=== PATIENT | female | born 1935 | race African-American/Black ===

== ENCOUNTER 2019-07-26 04:44 | Inpatient (IN) | payer MEDICARE, MEDICAID ==
[~2019-07-26] VITALS: Ht 172.7 cm; Wt 86.9 kg
--- NOTE | 2019-07-26 04:49 | NUR ---
PT BIBRA C/O MIDSTERNAL CHEST PRESSURE X30 MIN. -SOB. O2 SAT 98%. NAD NOTED. RESP EVEN AND UNLABORED. PT ON MONITOR IN BED 4. WILL CONTINUE TO MONITOR.
--- NOTE | 2019-07-26 04:51 | NUR ---
TECH AT BEDSIDE FOR EKG
--- NOTE | 2019-07-26 04:57 | NUR ---
BLOOD DRAWN AND GIVEN TO LAB
[2019-07-26 05:01] LABS: BASOPHILS % (AUTO) 0.4 % (0.0-2.0); EOSINOPHILS % (AUTO) 0.2 % (0.0-6.0); HEMATOCRIT 38 % (33-45); HEMOGLOBIN 12.8 g/dL (11.5-14.8); LYMPHOCYTES # (AUTO) 1.6 /CMM (0.8-4.8); LYMPHOCYTES % (AUTO) 22.3 % (20.0-44.0); MEAN CORPUSCULAR HGB CONC 34 g/dl (31.0-36.0); MEAN CORPUSCULAR VOLUME 93 fL (82-100); MONOCYTES # (AUTO) 0.7 /CMM (0.1-1.30); MONOCYTES % (AUTO) 9.1 % (2.0-12.0); NEUTROPHILS # (AUTO) 4.9 /CMM (1.8-8.9); PLATELET COUNT (AUTO) 216 /CMM (150-450); RED BLOOD CELL COUNT(AUTO) 4.04 MIL/uL (4.0-5.2); WHITE BLOOD COUNT (AUTO) 7.2 K/uL (4.3-11.0)
--- NOTE | 2019-07-26 05:07 | NUR ---
RADIOLOGY AT BEDSIDE FOR XRAY
[2019-07-26 05:09] LABS: CALCIUM, SERUM 9.4 mg/dL (8.5-10.1); CARBON DIOXIDE 27 mmol/L (21-32); CHLORIDE 101 mmol/L (98-107); CREATININE 1.7 mg/dL (0.6-1.3); GLUCOSE 110 mg/dL (74-106); POTASSIUM 3.7 mmol/L (3.5-5.1); SODIUM SERUM 137 mmol/L (136-145); UREA NITROGEN, BLOOD 38 mg/dL (7-18)
--- NOTE | 2019-07-26 06:11 | NUR ---
REPORT GIVEN TO JERRY MARK FOR AIDEN
[2019-07-26] MEDS ORDERED: ONDANSETRON HCL/PF 4 MG/2 ML VIAL IVP PRN (06:30)
[2019-07-26] MEDS ORDERED: Z GUARD REMEDY 2 OZ OINT TP PRN (06:30)
[2019-07-26] MEDS ORDERED: MAG HYDROX/AL HYDROX/SIMETH 30 ML UDC PO PRN (06:30)
[2019-07-26] MEDS ORDERED: MAGNESIUM HYDROXIDE 30 ML UDC PO PRN (06:30)
[2019-07-26] MEDS ORDERED: HYDROCODONE/APAP 5/325MG 1 EACH TABLET PO PRN (06:30)
[2019-07-26 06:35] VITALS: BP 136/72
--- NOTE | 2019-07-26 06:35 | NUR ---
TELE/RN NOTES RECEIVED PT. FROM ER VIA MARK. PT. IS AWAKE, ALERT AND ORIENTED X2. BREATHING EVEN AND UNLABORED ON ROOM AIR. NO SOB, RESPIRATORY DISTRESS OR COMPLAINTS OF PAIN NOTED AT THIS TIME. ORIENTED PT. TO ROOM. PLACED EXTERNAL FINANCIAL SERVICES COUNSELOR ON PT. BED LOCKED AND IN LOWEST POSITION, SIDE RAILS UP X3, BED ALARM ON, CALL LIGHT WITHIN REACH. WILL ENDORSE TO DAYSHIFT NURSE FOR ADMISSION.
--- NOTE | 2019-07-26 07:00 | NUR ---
GOLF BALL WINDER OPENING NOTES RECEIVED PT FROM MACHINE WOOD SANDER AN ADMISSION.PT IS ALERT/ORIENTED X2 WITH DEMENTIA.ON TELE HR IS 70 WITH NSR.ON ROOM AIR,SATURATING WELL.NO SOB AND ACUTE DISTRESS NOTED.IV LINE IS ON LEFT HAND G20,SL.SITE IS CLEAN,DRY AND INTACT.NO INFILTRATION NOTED.SAFETY IS MAINTAINED AT ALL TIMES.BED IS IN LOW POSITION AND LOCKED.CALL LIGHT IS WITHIN REACH.WILL CONTINUE TO MONITOR THE PT CLOSELY.
[2019-07-26 08:00] VITALS: BP 132/70
[2019-07-26] MEDS: IV NS 0.9% 1,000 ML IV PRN (08:06)
--- NOTE | 2019-07-26 08:10 | NUR ---
JOVAN received a call from Ez at [facility] informing JOVAN that pt. was sent to [facility] from [facility] and pt. will be coming back to [facility] once medically cleared. JOVAN called [facility] [address] [place] and updated her with aforementioned information.
[2019-07-26 08:31] VITALS: BP 132/70
[2019-07-26] MEDS ORDERED: ASPIRIN 81 MG TAB.CHEW PO SCH (09:00)
[2019-07-26 09:26] LABS: THYROID STIMULATING HORMONE 7.054 uIU/mL (0.358-3.74)
[2019-07-26] MEDS: ATORVASTATIN 10 MG TABLET PO SCH (09:45)
[2019-07-26] MEDS: PANTOPRAZOLE 40 MG TABLET.DR PO SCH (09:45)
[2019-07-26] MEDS: ENOXAPARIN SODIUM 30 MG/0.3 ML DISP.SYRIN SQ SCH (09:52)
[2019-07-26] MEDS ORDERED: IPRA4AER IH (10:41)
[2019-07-26] MEDS ORDERED: FURO-145 PO (10:41)
[2019-07-26] MEDS ORDERED: ISOS30TA6 PO (10:41)
[2019-07-26] MEDS ORDERED: OLAN5TAB3 PO (10:41)
[2019-07-26] MEDS ORDERED: SPIR25TA6 PO (10:41)
[2019-07-26] MEDS ORDERED: LOSA1TAB39 PO (10:41)
[2019-07-26] MEDS ORDERED: AMLO10TA4 PO (10:41)
[2019-07-26] MEDS ORDERED: CLOP75TA15 PO (10:41)
[2019-07-26] MEDS ORDERED: ATOR10TA PO (10:41)
[2019-07-26] MEDS ORDERED: VENL75TA4 PO (10:41)
[2019-07-26] MEDS ORDERED: DONE10TA44 PO (10:41)
[2019-07-26] MEDS ORDERED: ESOM20CA PO (10:41)
[2019-07-26] MEDS ORDERED: LEVO25TA7 PO (10:41)
[2019-07-26] MEDS ORDERED: EZET10TA16 PO (10:41)
[2019-07-26] MEDS ORDERED: LORA1TAB PO (10:41)
[2019-07-26] MEDS ORDERED: MEMA14CA PO (10:41)
[2019-07-26] MEDS: ACETAMINOPHEN 325 MG TABLET PO PRN (11:33)
--- NOTE | 2019-07-26 14:53 | NUR ---
JOVAN was informed by human services case manager Mary that pt's public guardian Ron Scott would like for the pt. to go back to her [facility]. JOVAN contacted Ez at [facility] and updated him the aforementioned information.
[2019-07-26 16:00] VITALS: BP 131/65
[2019-07-26 16:06] LABS: MAGNESIUM 1.9 mg/dL (1.8-2.4); PHOSPHORUS 3.7 mg/dL (2.5-4.9)
--- NOTE | 2019-07-26 18:34 | NUR ---
MS RN CLOSING NOTES PT IS LYING ON BED.ALERT/ORIENTED X3.IV FLUID IS RUNNING .9%NS @75CC/HR.IV LINE IS IN PLACE.NO SIGNIFICANT CHANGES NOTED IN THE SHIFT.VITAL SIGNS ARE STABLE.WILL ENDORSE TO ALLIGATOR HUNTER RN FOR AIDEN.
[2019-07-26 19:54] VITALS: BP 134/76
--- NOTE | 2019-07-26 20:30 | NUR ---
RN MS OPENING NOTES RECEIVED PATIENT IN BED AWAKE, ALERT AND ORIENTED X2, VERBALLY RESPONSIVE, ABLE TO MAKE NEEDS KNOWN. BREATHING EVEN AND UNLABORED. NO SOB NOTED. ON ROOM AIR. DENIES PAIN OR DISCOMFORT. IV INTACT AND PATENT WITH IVF INFUSING. AFEBRILE. ALL OTHER NEEDS ATTENDED TO. SAFETY MEASURES IN PLACE. CALL LIGHT WITHIN REACH. WILL CONTINUE TO MONITOR.
[2019-07-27 06:21] LABS: BASOPHILS % (AUTO) 0.2 % (0.0-2.0); EOSINOPHILS % (AUTO) 0.1 % (0.0-6.0); HEMATOCRIT 39 % (33-45); HEMOGLOBIN 12.9 g/dL (11.5-14.8); LYMPHOCYTES # (AUTO) 1.3 /CMM (0.8-4.8); MEAN CORPUSCULAR HGB CONC 34 g/dl (31.0-36.0); MEAN CORPUSCULAR VOLUME 93 fL (82-100); MONOCYTES # (AUTO) 0.5 /CMM (0.1-1.30); MONOCYTES % (AUTO) 8.7 % (2.0-12.0); NEUTROPHILS # (AUTO) 4.2 /CMM (1.8-8.9); PLATELET COUNT (AUTO) 199 /CMM (150-450); RED BLOOD CELL COUNT(AUTO) 4.16 MIL/uL (4.0-5.2)
[2019-07-27 06:38] LABS: CHOLESTEROL 140 mg/dL (<200); HDL CHOLESTEROL 50 mg/dL (40-60); LDL 75 mg/dL (0-99); THYROID STIMULATING HORMONE 2.625 uIU/mL (0.358-3.74); TRIGLYCERIDES 90 mg/dL (30-150)
[2019-07-27] MEDS: IV NS 0.9% 1,000 ML IV PRN (06:39)
--- NOTE | 2019-07-27 06:55 | NUR ---
RN MS CLOSING NOTES PATIENT RESTING IN BED. NO ACUTE CHANGES THROUGHOUT SHIFT. BREATHING EVEN AND UNLABORED. NO SOB NOTED. ON ROOM AIR. DENIES PAIN OR DISCOMFORT. IV INTACT AND PATENT WITH IVF INFUSING. KEPT CLEAN DRY AND COMFORTABLE. ALL NEEDS ATTENDED TO. SAFETY MEASURES IN PLACE. CALL LIGHT WITHIN REACH. WILL ENDORSE TO ONCOMING NURSE FOR AIDEN.
[2019-07-27 06:57] LABS: ALANINE AMINOTRANSFERASE 17 U/L (12-78); ALBUMIN 3.5 g/dL (3.4-5.0); ALKALINE PHOSPHATASE 123 U/L (46-116); ASPARTATE AMINOTRANSFERASE 13 U/L (15-37); BILIRUBIN,TOTAL 0.3 mg/dL (0.2-1.0); CALCIUM, SERUM 9.4 mg/dL (8.5-10.1); CARBON DIOXIDE 26 mmol/L (21-32); CHLORIDE 106 mmol/L (98-107); CREATININE 1.3 mg/dL (0.6-1.3); GLUCOSE 92 mg/dL (74-106); MAGNESIUM 1.7 mg/dL (1.8-2.4); PHOSPHORUS 3.3 mg/dL (2.5-4.9); POTASSIUM 4.2 mmol/L (3.5-5.1); SODIUM SERUM 141 mmol/L (136-145); TOTAL PROTEIN, SERUM 7.6 g/dL (6.4-8.2); UREA NITROGEN, BLOOD 27 mg/dL (7-18)
--- NOTE | 2019-07-27 07:45 | NUR ---
MS/RN - Assessment Patient awake, A/O x 2, no complaints overnight, denies chest pain, afebrile, stable on room air. IVF NS at 75 ml/hr infusing well on the left hand with no signs of infiltration. Morning labs reviewed, noted with low magnesium level 1.7, will relay to Dr. Butt. Patient educated on plan of care. Fall and aspiration precautions maintained. Will continue with current medical management.
[2019-07-27 08:00] VITALS: BP 100/76
[2019-07-27] MEDS: ATORVASTATIN 10 MG TABLET PO SCH (08:07)
[2019-07-27] MEDS: PANTOPRAZOLE 40 MG TABLET.DR PO SCH (08:07)
[2019-07-27] MEDS: ENOXAPARIN SODIUM 30 MG/0.3 ML DISP.SYRIN SQ SCH (08:08)
[2019-07-27] MEDS ORDERED: ASPIRIN 81 MG TAB.CHEW PO SCH (09:00)
--- NOTE | 2019-07-27 10:00 | NUR ---
MS/RN - S/b Dr. Butt Seen and examined by Dr. Butt with orders.
[2019-07-27] MEDS: Magnesium 1GM/D5W 100ML PREMIX 100 ML IV SCH ×2 (11:15→12:22)
[2019-07-27 16:00] VITALS: BP 166/105
--- NOTE | 2019-07-27 17:55 | NUR ---
MS/RN - End of shift summary Patient is A/O x 1-2, confused at times, reality orientation provided, denies pain, stable on room air. Magnesium replacement given, continue IVF to maintain hydration. All needs attended. Fall and aspiration precautions maintained. Will continue with current medical management.
--- NOTE | 2019-07-27 19:27 | NUR ---
RECEIVED AWAKE AND ALERT WAVING "HI" AND SMILING BED ALARM ON IV SITE W/O REDNESS OR EDEMA WRAPPED WITH GAUZE AT THE SITE D/T HER REMOVING IV MULTIPLE TIMES DURING THE DAY SHIFT BED ALARM ON ROOM NEAR NURSING STATION RESP EVEN AND UNLABORED
[2019-07-27 19:44] VITALS: BP 143/80
[2019-07-27 20:16] VITALS: BP 143/80
[2019-07-27] MEDS: ACETAMINOPHEN 325 MG TABLET PO PRN (20:58)
--- NOTE | 2019-07-28 05:15 | NUR ---
ENDING NOTES: ALERT ORIENTATED X1. AT THE BEGINNING OF THIS 12 HOURS SHE REMOVED HER IV AND STATED SHE WANTED TO GO HOME. SPOKE TO HER IN A SOFT CALM MATTER AND CONVINCED HER TO STAY. IV RESTARTED AND SNACK GIVEN AND CONSUMED 100%. PT CHECKED ON FREQUENTLY TO HELP LESSEN HER ANXIETY OF BEING ALONE, THIS WAS EFFECTIVE, NO C/O CHESTPAIN THIS 12 HOURS
[2019-07-28] MEDS: IV NS 0.9% 1,000 ML IV PRN (05:45)
[2019-07-28 06:25] LABS: BASOPHILS % (AUTO) 0.3 % (0.0-2.0); HEMATOCRIT 40 % (33-45); HEMOGLOBIN 13.2 g/dL (11.5-14.8); LYMPHOCYTES # (AUTO) 1.2 /CMM (0.8-4.8); LYMPHOCYTES % (AUTO) 19.8 % (20.0-44.0); MEAN CORPUSCULAR HGB CONC 33 g/dl (31.0-36.0); MEAN CORPUSCULAR VOLUME 93 fL (82-100); MONOCYTES # (AUTO) 0.6 /CMM (0.1-1.30); NEUTROPHILS # (AUTO) 4.1 /CMM (1.8-8.9); NEUTROPHILS % (AUTO) 69.9 % (43.0-81.0); PLATELET COUNT (AUTO) 192 /CMM (150-450); RED BLOOD CELL COUNT(AUTO) 4.25 MIL/uL (4.0-5.2); WHITE BLOOD COUNT (AUTO) 5.9 K/uL (4.3-11.0)
[2019-07-28 06:29] LABS: CALCIUM, SERUM 9.5 mg/dL (8.5-10.1); CREATININE 1.1 mg/dL (0.6-1.3); POTASSIUM 4.1 mmol/L (3.5-5.1)
--- NOTE | 2019-07-28 07:10 | NUR ---
MS RN NOTES PATIENT IN BED EYES CLOSED, EASY TO AROUSE, RESPOND TO VERBAL AND TACTILE STIMULI. NO ACUTE DISTRESS NOTED. BREATHING UNLABORED. NO SOB NOTED. IV ACCESS PATENT AND INTACT, NO REDNESS OR SWELLING NOTED. SAFETY MEASURES IN PLACE. CALL LIGHT WITHIN REACH. WILL CONTINUE TO MONITOR ACCORDINGLY.
[2019-07-28 08:00] VITALS: BP 147/77
[2019-07-28] MEDS: PANTOPRAZOLE 40 MG TABLET.DR PO SCH (08:41)
[2019-07-28] MEDS: ATORVASTATIN 10 MG TABLET PO SCH (08:41)
[2019-07-28] MEDS: ENOXAPARIN SODIUM 30 MG/0.3 ML DISP.SYRIN SQ SCH (08:43)
--- NOTE | 2019-07-28 10:01 | NUR ---
MS RN NOTES PATIENT SEEN AND EVALUATED BY MARY ALICE MARES WITH NEW ORDERS MADE. NOTED AND CARRIED OUT.
--- NOTE | 2019-07-28 14:40 | NUR ---
MS ARCHITECTURAL DRAFTER NOTES PATIENT DISCHARGE TO [facility] WITH STABLE VITAL SIGNS. ALERT ORIENTED X 2. NO ACUTE DISTRESS NOTED. BREATHING UNLABORED. NO SOB NOTED. NO FACIAL GRIMACING NOTED. DISCHARGE INSTRUCTIONS GIVEN TO THE EMT PERSONNEL TO BE HANDED OVER TO [facility] PERSONNEL. ALL BELONGINGS ACCOUNTED FOR. NEEDS ATTENDED AND ANTICIPATED. KEPT CLEAN DRY AND COMFORTABLE. PICKED UP VIA AMBULANCE IN A GURNEY ACCOMPANIED BY 2 EMT PERSONNEL IN STABLE CONDITION. IV ACCESS REMOVED, NO BLEEDING, NO REDNESS, NO SWELLING NOTED.
== END 2019-07-28 14:45 | DRG 640 ==
LOC: ER 04:45 → TELE 05:52 → MED 11:35
PROVIDERS: ADMIT Family Medicine; ATTEND Family Medicine
DX: E86.9 Volume depletion, unspecified (principal); N17.0 Acute kidney failure with tubular necrosis; F03.90 Unspecified dementia, unspecified severity, without behavioral disturbance, psychotic disturbance, mood disturbance, and anxiety; I10 Essential (primary) hypertension; I12.9 Hypertensive chronic kidney disease with stage 1 through stage 4 chronic kidney disease, or unspecified chronic kidney disease; N18.9 Chronic kidney disease, unspecified; I25.10 Atherosclerotic heart disease of native coronary artery without angina pectoris; F31.9 Bipolar disorder, unspecified; Z88.5 Allergy status to narcotic agent; Z88.0 Allergy status to penicillin; Z88.8 Allergy status to other drugs, medicaments and biological substances; Z90.710 Acquired absence of both cervix and uterus; Z86.73 Personal history of transient ischemic attack (TIA), and cerebral infarction without residual deficits; Z82.49 Family history of ischemic heart disease and other diseases of the circulatory system; E83.42 Hypomagnesemia
CPT/HCPCS: 36415; 71045-TC; 80048-TC; 80053-TC; 80061-TC; 82728-TC; 83540-TC; 83735-TC; 83880; 84100-TC; 84439-TC; 84443-TC; 84484-TC; 85025-TC; 87081-TC; 93307-TC; 97116-TC; 97530-TC; G0378; J1650; J3475; J7030

== ENCOUNTER 2020-04-19 13:54 | Inpatient (IN) | payer MEDICARE, OTHER ==
[~2020-04-19] VITALS: Ht 172.7 cm; Wt 76.2 kg
[~2020-04-19 13:54] MED LIST: AMLO10TA4 PO; ATOR10TA PO; CLOP75TA15 PO; DONE10TA44 PO; ESOM20CA PO; EZET10TA16 PO; FURO-145 PO; IPRA4AER IH; ISOS30TA6 PO; LEVO25TA7 PO; LORA1TAB PO; LOSA1TAB39 PO; MEMA14CA PO; OLAN5TAB3 PO; SPIR25TA6 PO; VENL75TA4 PO
--- NOTE | 2020-04-19 13:56 | NUR ---
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
--- NOTE | 2020-04-19 14:19 | NUR ---
DRY PLACER MACHINE OPERATOR AT BEDSIDE
--- NOTE | 2020-04-19 14:23 | NUR ---
ONCE PT IS CLEARED MEDICALLY PT ACCEPTED TO [facility] facility in [place], [place] Address: [address] [place] [id number]
--- NOTE | 2020-04-19 14:44 | NUR ---
DR BUTLER AT BEDSIDE
[2020-04-19 14:46] LABS: BASOPHILS % (AUTO) 0.2 % (0.0-2.0); EOSINOPHILS % (AUTO) 0.3 % (0.0-6.0); HEMATOCRIT 44 % (33-45); HEMOGLOBIN 14.5 g/dL (11.5-14.8); LYMPHOCYTES # (AUTO) 1.5 /CMM (0.8-4.8); LYMPHOCYTES % (AUTO) 19.2 % (20.0-44.0); MEAN CORPUSCULAR HGB CONC 33 g/dl (31.0-36.0); MEAN CORPUSCULAR VOLUME 96 fL (82-100); MONOCYTES # (AUTO) 0.7 /CMM (0.1-1.30); MONOCYTES % (AUTO) 8.9 % (2.0-12.0); NEUTROPHILS # (AUTO) 5.7 /CMM (1.8-8.9); NEUTROPHILS % (AUTO) 71.4 % (43.0-81.0); PLATELET COUNT (AUTO) 229 /CMM (150-450); RED BLOOD CELL COUNT(AUTO) 4.56 MIL/uL (4.0-5.2)
[2020-04-19 14:51] LABS: CALCIUM, SERUM 10.2 mg/dL (8.5-10.1); CARBON DIOXIDE 24 mmol/L (21-32); CHLORIDE 103 mmol/L (98-107); CREATININE 1.5 mg/dL (0.6-1.3); GLUCOSE 166 mg/dL (74-106); POTASSIUM 4.9 mmol/L (3.5-5.1); SODIUM SERUM 137 mmol/L (136-145); UREA NITROGEN, BLOOD 34 mg/dL (7-18)
[2020-04-19] MEDS ORDERED: MEMA10TA PO (15:20)
[2020-04-19] MEDS ORDERED: VENL75CA62 PO (15:20)
[2020-04-19] MEDS ORDERED: ACET-868 PO (15:20)
[2020-04-19] MEDS ORDERED: OMEP20CA15 PO (15:20)
[2020-04-19] MEDS ORDERED: TRAZ-182 PO (15:20)
[2020-04-19] MEDS ORDERED: MOME13HF2 IH (15:20)
[2020-04-19] MEDS ORDERED: HALO2TAB PO (15:20)
[2020-04-19] MEDS ORDERED: HYDR25TA4 PO (15:20)
--- NOTE | 2020-04-19 15:25 | NUR ---
MOVE SHEET SUBMITTED TO ADMITTING AND CALLED FOR TELE BED.
[2020-04-19] MEDS ORDERED: IV NS 0.9% 250 ML BAG IV ONE (15:30)
[2020-04-19] MEDS ORDERED: NITROGLYCERIN PACKET 1 GM PACKET ONE (15:52)
--- NOTE | 2020-04-19 15:58 | NUR ---
GOT BED 308-1
[2020-04-19] MEDS ORDERED: NITROGLYCERIN PACKET 1 GM PACKET TOP ONE (16:00)
--- NOTE | 2020-04-19 16:09 | NUR ---
CALLED [facility] ITS [facility]AV[facility]
--- NOTE | 2020-04-19 16:42 | NUR ---
REPORT GIVEN TO KARRI EDWARDS OF TELE UNIT
--- NOTE | 2020-04-19 17:15 | NUR ---
PATIENT TRANSFERRED VIA GURNEY
[2020-04-19 17:30] VITALS: BP 132/76
[2020-04-19] MEDS ORDERED: MAG HYDROX/AL HYDROX/SIMETH 30 ML UDC PO PRN (18:00)
[2020-04-19] MEDS ORDERED: ONDANSETRON HCL/PF 4 MG/2 ML VIAL IVP PRN (18:00)
[2020-04-19] MEDS ORDERED: MAGNESIUM HYDROXIDE 30 ML UDC PO PRN (18:00)
[2020-04-19] MEDS ORDERED: ZOLPIDEM TARTRATE 5 MG TABLET PO PRN (18:00)
[2020-04-19] MEDS ORDERED: NITROGLYCERIN 0.4 MG/TAB BOTTLE SL PRN (18:00)
[2020-04-19] MEDS ORDERED: Z GUARD REMEDY 2 OZ OINT TP PRN (18:00)
[2020-04-19] MEDS ORDERED: HYDROCODONE/APAP 5/325MG 1 EACH TABLET PO PRN (18:00)
[2020-04-19] MEDS: IV 1/2NS 1000 ML 1,000 ML IV PRN (18:51)
--- NOTE | 2020-04-19 18:55 | NUR ---
Tele/RN - Admission Received patient from ER, alert and oriented x 2-3, denies chest pain, no palpitation, stable on room air, tele shows SR. Admitted for Chest pain under the care of Dr. Chambers. Patient oriented to room, all belongings accounted for. Saline lock on the right hand is patent and intact. Skin assessment done, no skin breakdown, picture taken for reference. Patient with VTE score of 3, mechanical and chemical prophylaxis ordered. Fall and safety precautions initiated. Will endorse to night RN accordingly.
--- NOTE | 2020-04-19 19:30 | NUR ---
brazing furnace feeder: received report from mariposa adams at 1910. met with pt in the room, pt is a/o x2, noted she stutter and somewhat delayed when answering questions, most of the time pt will only say "okay". per day rn md dr camargo aware regarding pt's home med list. pt on tele monitoring sinus rhythm hr 75, pt is [place]a. iv access patent and flushing well, infusing with 1/2 ns at 75ml/hr. safety precautions for fall initiated, call light in reach, will continue monitoring pt.
[2020-04-19] MEDS: HEPARIN SODIUM, PORCINE 5000 UNITS/1 ML VIAL SQ SCH (19:41)
[2020-04-19 20:00] VITALS: BP 129/71
[2020-04-20] VITALS: BP 148/75
[2020-04-20 03:56] VITALS: BP 155/75
[2020-04-20 04:00] VITALS: BP 155/75
[2020-04-20] MEDS: IV 1/2NS 1000 ML 1,000 ML IV PRN ×2 (05:39→23:47)
[2020-04-20 06:41] LABS: BASOPHILS % (AUTO) 0.4 % (0.0-2.0); EOSINOPHILS % (AUTO) 0.1 % (0.0-6.0); HEMATOCRIT 40 % (33-45); LYMPHOCYTES # (AUTO) 1.4 /CMM (0.8-4.8); LYMPHOCYTES % (AUTO) 23.4 % (20.0-44.0); MEAN CORPUSCULAR HGB CONC 33 g/dl (31.0-36.0); MEAN CORPUSCULAR VOLUME 94 fL (82-100); MONOCYTES # (AUTO) 0.6 /CMM (0.1-1.30); MONOCYTES % (AUTO) 9.4 % (2.0-12.0); NEUTROPHILS # (AUTO) 4.1 /CMM (1.8-8.9); NEUTROPHILS % (AUTO) 66.7 % (43.0-81.0); PLATELET COUNT (AUTO) 213 /CMM (150-450); RED BLOOD CELL COUNT(AUTO) 4.23 MIL/uL (4.0-5.2); WHITE BLOOD COUNT (AUTO) 6.1 K/uL (4.3-11.0)
--- NOTE | 2020-04-20 06:44 | NUR ---
end of shift report: pt remains a/o x2, delayed and stutter when speaking, on ra, respirations even and unlabored. iv access remains patent and flushing well, infusing with 1/2 ns at 75ml/hr, no s/s of iv infiltration noted. remains sinus rhythm hr 60 remains afebrile, no reports of chest pain throughout the shift. scd in use, ble offloaded on pillows. for cardio and nephro consult in am. safety precautions for fall remains engaged, call light in reach, will endorse to day rn for continuity of care.
[2020-04-20 07:10] LABS: THYROID STIMULATING HORMONE 3.475 uIU/mL (0.358-3.74)
[2020-04-20 07:11] LABS: CALCIUM, SERUM 9.3 mg/dL (8.5-10.1); CARBON DIOXIDE 24 mmol/L (21-32); CHLORIDE 100 mmol/L (98-107); CHOLESTEROL 155 mg/dL (<200); CREATININE 1.3 mg/dL (0.6-1.3); GLUCOSE 102 mg/dL (74-106); HDL CHOLESTEROL 58 mg/dL (40-60); LDL 87 mg/dL (0-99); PHOSPHORUS 4.1 mg/dL (2.5-4.9); POTASSIUM 3.5 mmol/L (3.5-5.1); SODIUM SERUM 134 mmol/L (136-145); TRIGLYCERIDES 61 mg/dL (30-150); UREA NITROGEN, BLOOD 30 mg/dL (7-18)
[2020-04-20 08:10] VITALS: BP 129/66
[2020-04-20] MEDS: PANTOPRAZOLE 40 MG TABLET.DR PO SCH (08:24)
[2020-04-20] MEDS: HEPARIN SODIUM, PORCINE 5000 UNITS/1 ML VIAL SQ SCH (08:25)
[2020-04-20] MEDS: ATORVASTATIN 10 MG TABLET PO SCH (09:32)
[2020-04-20] MEDS: ISOSORBIDE MONONITRATE (30MG) 30 MG TAB.SR.24H PO SCH (09:32)
[2020-04-20] MEDS: hydrALAZINE HCL 50 MG TABLET PO SCH ×3 (09:33→16:05)
[2020-04-20] MEDS: AMLODIPINE BESYLATE 10 MG TABLET PO SCH (09:33)
[2020-04-20] MEDS: CLOPIDOGREL BISULFATE 75 MG TABLET PO SCH (09:33)
[2020-04-20] MEDS: LEVOTHYROXINE SODIUM 25 MCG TABLET PO SCH (09:45)
[2020-04-20] MEDS: ENOXAPARIN SODIUM 30 MG/0.3 ML DISP.SYRIN SQ SCH (16:06)
[2020-04-20 16:11] VITALS: BP 139/77
--- NOTE | 2020-04-20 19:10 | NUR ---
M/S RN NOTES PATIENT IN NO ACUTE DISTRESS, NO C/O OF CHEST PAIN OR ANY DISCOMFORT. SKIN WARM TO TOUCH, IV ACCESS SITE INTACT AND PATENT. PATIENT'S NEEDS ATTENDED, BED ON LOWEST LOCKED POSITION, CALL LIGHT WITHIN REACH. WILL ENDORSE TO ONCOMING NURSE.
[2020-04-20 20:00] VITALS: BP 146/84
--- NOTE | 2020-04-20 20:00 | NUR ---
RN NOTES: PLACED ON ISOLATION/AIRBORNE/CONTACT/DROPLET, R/O COVID PENDING SNF PLACEMENT, PPE AND FACESHIELD UTILIZED WITH N95 MASK.
[2020-04-20] MEDS: ACETAMINOPHEN 325 MG TABLET PO PRN (21:04)
--- NOTE | 2020-04-20 21:04 | NUR ---
prn tylenol: pt c/o head ache, requesting for tylenol, prn tylenol 650 mg tab po administered to pt at this time
--- NOTE | 2020-04-20 22:00 | NUR ---
RN NOTES: PT PULLED OUT IV ACCESS STATED SHE DOESNT WANT AND SHE DOESNT NEED THE IV FLUID, EDUCATION PROVIDED TO PT. PT THEN AGREE, BUT PT REFUSING TO USE RIGHT ARM FOR IV INSERTION STATING ITS PAINFUL. USED VEIN FINDER, PT HARD TO STICK, NEW IV ACCESS INSERTED ON LFA G 24, WITH GOOD BLOOD RETURN NOTED,
--- NOTE | 2020-04-21 06:48 | NUR ---
end of shift report: pt remains a/o x2-3, able to make her needs known. pt refusing ivf and iv reinsertion using right arm, despite providing education. pt r/o covid, remains on isolation. no report of chest pain throughout the shift. PLAN OF CARE:pending covid test, for placement. vs remains stable, needs attended. safety precautions for fall remains engaged, call light in reach, will endorse to day rn for continuity of care.
--- NOTE | 2020-04-21 07:34 | NUR ---
RN OPENING NOTE Patient is resting in bed, A/O x2-3, showing no signs of acute distress or SOB, stable on RA. IV line in the LFA#24g is clean and intact s/l. Per PM RN, patient refused IVF and MD is aware. Patient has no complaints of pain at this time. Bed is in lowest position, side rails x3 in upright position, call light is within reach, fall safety and aspiration enforced. Will continue with plan of care.
[2020-04-21 07:51] LABS: BASOPHILS % (AUTO) 0.5 % (0.0-2.0); EOSINOPHILS % (AUTO) 0.1 % (0.0-6.0); HEMATOCRIT 41 % (33-45); HEMOGLOBIN 13.8 g/dL (11.5-14.8); LYMPHOCYTES # (AUTO) 1.4 /CMM (0.8-4.8); LYMPHOCYTES % (AUTO) 19.4 % (20.0-44.0); MEAN CORPUSCULAR HGB CONC 34 g/dl (31.0-36.0); MEAN CORPUSCULAR VOLUME 93 fL (82-100); MONOCYTES # (AUTO) 0.6 /CMM (0.1-1.30); PLATELET COUNT (AUTO) 229 /CMM (150-450); RED BLOOD CELL COUNT(AUTO) 4.43 MIL/uL (4.0-5.2)
[2020-04-21 08:12] LABS: CALCIUM, SERUM 9.1 mg/dL (8.5-10.1); CREATININE 1.3 mg/dL (0.6-1.3); MAGNESIUM 1.7 mg/dL (1.8-2.4); PHOSPHORUS 3.6 mg/dL (2.5-4.9); POTASSIUM 3.7 mmol/L (3.5-5.1)
[2020-04-21 08:14] VITALS: BP 153/75
[2020-04-21] MEDS: CLOPIDOGREL BISULFATE 75 MG TABLET PO SCH (08:41)
[2020-04-21] MEDS: ATORVASTATIN 10 MG TABLET PO SCH (08:41)
[2020-04-21] MEDS: LEVOTHYROXINE SODIUM 25 MCG TABLET PO SCH (08:41)
[2020-04-21] MEDS: PANTOPRAZOLE 40 MG TABLET.DR PO SCH (08:41)
[2020-04-21] MEDS: hydrALAZINE HCL 50 MG TABLET PO SCH ×3 (08:43→16:07)
[2020-04-21] MEDS: ISOSORBIDE MONONITRATE (30MG) 30 MG TAB.SR.24H PO SCH (08:43)
[2020-04-21] MEDS: AMLODIPINE BESYLATE 10 MG TABLET PO SCH (08:43)
[2020-04-21 09:00] VITALS: BP 153/75
[2020-04-21] MEDS: Magnesium 1GM/D5W 100ML PREMIX 100 ML IV SCH ×2 (09:43→11:38)
[2020-04-21] MEDS ORDERED: DEXTROSE 50%-WATER 50 ML DISP.SYRIN IV PRN (13:30)
[2020-04-21] MEDS: ENOXAPARIN SODIUM 30 MG/0.3 ML DISP.SYRIN SQ SCH (15:28)
[2020-04-21 16:00] VITALS: BP 146/74
[2020-04-21] MEDS: BLOOD SUGAR DIAGNOSTIC 1 EACH STRIP VI SCH ×2 (17:33→22:53)
[2020-04-21] MEDS: INSULIN REGULAR, HUMAN 100 UNIT/ML 3 ML VIAL SQ PRN (17:34)
--- NOTE | 2020-04-21 18:22 | NUR ---
RN CLOSING NOTE Patient is resting in bed, A/O x2-3, showing no signs of acute distress or SOB, stable on RA. IV line in the LFA#24g is clean and intact, flushing well. All patient needs met, all due medications given, patient is independent with BRP. Bed is in lowest position, side rails x3 in upright position, call light is within reach, fall safety and aspiration enforced. Isolation precautions due to pending COVID result. Will endorse to shift stacker.
[2020-04-21] MEDS: ACETAMINOPHEN 325 MG TABLET PO PRN (18:32)
[2020-04-21 20:40] VITALS: BP 136/65
[2020-04-22] MEDS: BLOOD SUGAR DIAGNOSTIC 1 EACH STRIP VI SCH ×4 (06:27→21:42)
--- NOTE | 2020-04-22 06:30 | NUR ---
MS RN NOTES AWAKE & RESPONSIVE. NOT IN ANY DISTRESS. SNO SOB NOTED. DENIES ANY PAIN OR DISCOMFORT AT THIS TIME. WITH IV-HL PATENT & INTACT. AM CARE DONE. MONITORED ACCORDINGLY. CALL LIGHT WITHIN REACH. BED IN LOWEST POSITION. SR UP X 3 WITH BED ALARM ON FOR SAFETY. WILL ENDORSE TO NEXT SHIFT.
[2020-04-22 06:38] LABS: BASOPHILS % (AUTO) 0.4 % (0.0-2.0); EOSINOPHILS % (AUTO) 0.3 % (0.0-6.0); HEMATOCRIT 43 % (33-45); LYMPHOCYTES # (AUTO) 1.7 /CMM (0.8-4.8); LYMPHOCYTES % (AUTO) 25.3 % (20.0-44.0); MEAN CORPUSCULAR HGB CONC 33 g/dl (31.0-36.0); MEAN CORPUSCULAR VOLUME 95 fL (82-100); MONOCYTES # (AUTO) 0.6 /CMM (0.1-1.30); MONOCYTES % (AUTO) 9.3 % (2.0-12.0); NEUTROPHILS # (AUTO) 4.5 /CMM (1.8-8.9); NEUTROPHILS % (AUTO) 64.7 % (43.0-81.0); PLATELET COUNT (AUTO) 234 /CMM (150-450); RED BLOOD CELL COUNT(AUTO) 4.51 MIL/uL (4.0-5.2); WHITE BLOOD COUNT (AUTO) 6.9 K/uL (4.3-11.0)
[2020-04-22 06:46] LABS: CALCIUM, SERUM 9.9 mg/dL (8.5-10.1); CREATININE 1.3 mg/dL (0.6-1.3); MAGNESIUM 2.6 mg/dL (1.8-2.4); PHOSPHORUS 3.5 mg/dL (2.5-4.9); POTASSIUM 3.6 mmol/L (3.5-5.1)
[2020-04-22] MEDS: LEVOTHYROXINE SODIUM 25 MCG TABLET PO SCH (07:43)
[2020-04-22] MEDS: PANTOPRAZOLE 40 MG TABLET.DR PO SCH (07:43)
[2020-04-22 08:00] VITALS: BP 135/62
--- NOTE | 2020-04-22 08:00 | NUR ---
MS/RN opening note Received patient in bed, AO x 2-3, able to responds all stimuli. Patient does no c/o chest pain or discomfort. Ski is warm to touch, kept clean/dry. Pt took morning med with compliance, respiratory even and unlabored in room air. Keep bed in locked with elevated HOB. Call light within in reach, will continue e to monitor.
[2020-04-22] MEDS: AMLODIPINE BESYLATE 10 MG TABLET PO SCH (09:11)
[2020-04-22] MEDS: hydrALAZINE HCL 50 MG TABLET PO SCH ×3 (09:11→17:18)
[2020-04-22] MEDS: ISOSORBIDE MONONITRATE (30MG) 30 MG TAB.SR.24H PO SCH (09:12)
[2020-04-22] MEDS: ATORVASTATIN 10 MG TABLET PO SCH (09:12)
[2020-04-22] MEDS: CLOPIDOGREL BISULFATE 75 MG TABLET PO SCH (09:12)
[2020-04-22] MEDS: *INSULIN REGULAR(HUMULIN R)HUM 100 UNIT/ML VIAL SQ PRN ×2 (12:08→17:18)
[2020-04-22 16:00] VITALS: BP 116/48
[2020-04-22] MEDS: ENOXAPARIN SODIUM 30 MG/0.3 ML DISP.SYRIN SQ SCH (16:05)
--- NOTE | 2020-04-22 18:24 | NUR ---
MS/RN Closing note Patient in bed resting in room, no appears pain or discomfort. Pt took all due meds and insulin with compliance. Skin is warm to touch, clean/dry, intact IV site. Respiratory even and unlabored in room air and O2sat 98%. Keep bed in locked with elevated HOB for secure airway and aspiration precaution. Call light within reach, will endorse caustic cresylate shift superintendent.
--- NOTE | 2020-04-22 19:27 | NUR ---
MS RN NOTES PATIENT IN BED, ASLEEP, ALERT AND ORIENTED X 2-3. BREATHING EVEN AND UNLABORED ON ROOM AIR. SHOWS NO SIGNS OF ACUTE RESPIRATORY DISTRESS, NO ACUTE PAIN. IV ON L FA 24G SL. ITS CLEAN, DRY, AND INTACT. SHOWS NO SIGNS OF INFILTRATION, NO REDNESS. SAFETY PRECAUTIONS IN PLACE. BED IN LOWEST POSITION, LOCKED, AND CALL LIGHT KEPT WITHIN REACH. WILL CONTINUE TO MONITOR.
[2020-04-22 19:30] VITALS: BP 114/55
[2020-04-22 20:58] VITALS: BP 114/55
[2020-04-22] MEDS: ACETAMINOPHEN 325 MG TABLET PO PRN (22:48)
[2020-04-23] MEDS: BLOOD SUGAR DIAGNOSTIC 1 EACH STRIP VI SCH ×4 (06:30→21:09)
--- NOTE | 2020-04-23 06:31 | NUR ---
MS RN NOTES PATIENT IN BED, ASLEEP, ALERT AND ORIENTED X 2. BREATHING EVEN AND UNLABORED ON ROOM AIR. SHOWS NO SIGNS OF ACUTE RESPIRATORY DISTRESS, NO ACUTE PAIN. IV ON L FA 24G SL, REFUSING IVF. ITS CLEAN, DRY, AND INTACT. SHOWS NO SIGNS OF INFILTRATION, NO REDNESS. ALL DUE MEDICATIONS GIVEN. SAFETY PRECAUTIONS IN PLACE. BED IN LOWEST POSITION, LOCKED, AND CALL LIGHT KEPT WITHIN REACH. WILL ENDORSE TO ONCOMING NURSE.
--- NOTE | 2020-04-23 07:00 | NUR ---
MS RN OPENING NOTES RECEIVED PATIENT IN BED, ASLEEP AND EASILY AWAKEN, AO X 2. NO SOB NOTED, NO S/S OF ANY ACUTE DISTRESS NOTED. RESPIRATIONS EVEN AND UNLABORED ON RA. NO C/O PAIN AT THIS TIME. IV ACCESS ON L FA 24G SL INTACT AND PATENT. SAFETY PRECAUTIONS IN PLACE. BED IN LOWEST LOCKED POSITION, HOB ELEVATED, SIDE RAILS UP CALL LIGHT WITHIN REACH. WILL CONTINUE TO MONITOR.
[2020-04-23 07:11] LABS: BASOPHILS # (AUTO) 0.1 /CMM (0.0-0.2); BASOPHILS % (AUTO) 0.6 % (0.0-2.0); EOSINOPHILS % (AUTO) 0.1 % (0.0-6.0); HEMATOCRIT 42 % (33-45); LYMPHOCYTES # (AUTO) 2.2 /CMM (0.8-4.8); LYMPHOCYTES % (AUTO) 22.6 % (20.0-44.0); MEAN CORPUSCULAR HGB CONC 34 g/dl (31.0-36.0); MEAN CORPUSCULAR VOLUME 93 fL (82-100); MONOCYTES % (AUTO) 10.2 % (2.0-12.0); NEUTROPHILS # (AUTO) 6.6 /CMM (1.8-8.9); NEUTROPHILS % (AUTO) 66.5 % (43.0-81.0); PLATELET COUNT (AUTO) 217 /CMM (150-450); RED BLOOD CELL COUNT(AUTO) 4.51 MIL/uL (4.0-5.2); WHITE BLOOD COUNT (AUTO) 9.9 K/uL (4.3-11.0)
[2020-04-23 07:23] LABS: CREATININE 1.3 mg/dL (0.6-1.3); MAGNESIUM 2.1 mg/dL (1.8-2.4); PHOSPHORUS 3.6 mg/dL (2.5-4.9); POTASSIUM 3.3 mmol/L (3.5-5.1)
[2020-04-23] MEDS: LEVOTHYROXINE SODIUM 25 MCG TABLET PO SCH (07:34)
[2020-04-23] MEDS: PANTOPRAZOLE 40 MG TABLET.DR PO SCH (07:34)
[2020-04-23 08:00] VITALS: BP 128/59
[2020-04-23 08:11] LABS: LYMPHOCYTES % (MANUAL) 20 % (16-48); MONOCYTES % (MANUAL) 15 % (0-11.0); NEUTROPHILS % (MANUAL) 65 (42-76)
[2020-04-23] MEDS: hydrALAZINE HCL 50 MG TABLET PO SCH ×3 (08:38→17:10)
[2020-04-23] MEDS: AMLODIPINE BESYLATE 10 MG TABLET PO SCH (08:38)
[2020-04-23] MEDS: CLOPIDOGREL BISULFATE 75 MG TABLET PO SCH (08:38)
[2020-04-23] MEDS: ISOSORBIDE MONONITRATE (30MG) 30 MG TAB.SR.24H PO SCH (08:39)
[2020-04-23] MEDS: ATORVASTATIN 10 MG TABLET PO SCH (08:39)
[2020-04-23] MEDS ORDERED: POTASSIUM CHLORIDE 20 MEQ TAB.PRT.SR PO SCH (09:30)
[2020-04-23] MEDS: POTASSIUM CHLORIDE 20 MEQ TAB.PRT.SR PO SCH ×2 (09:42→10:56)
[2020-04-23] MEDS: ENOXAPARIN SODIUM 30 MG/0.3 ML DISP.SYRIN SQ SCH (15:45)
[2020-04-23 16:00] VITALS: BP 119/70
[2020-04-23] MEDS: INSULIN REGULAR, HUMAN 100 UNIT/ML 3 ML VIAL SQ PRN (17:24)
--- NOTE | 2020-04-23 19:03 | NUR ---
FISHERIES TECHNICAL OFFICER CLOSING NOTES PATIENT IN BED, AWAKE AT THIS TIME. PT REMAINED STABLE THROUGHOUT SHIFT. PT KEPT CLEAN AND DRY. ALL CARE, NEEDS, TREATMENT AND MEDICATIONS ADMINISTERED ANTICIPATED PER ORDER. SAFETY PRECAUTIONS IN PLACE. BED IN LOWEST LOCKED POSITION, HOB ELEVATED, SIDE RAILS UP X2, CALL LIGHT WITHIN REACH. WILL ENDORSE TO SENIOR SALES MANAGER NURSE FOR AIDEN
--- NOTE | 2020-04-23 19:22 | NUR ---
MS RN NOTES PATIENT IN BED, LAYING IN BED RESTING, ALERT AND ORIENTED X 2-3. BREATHING EVEN AND UNLABORED ON ROOM AIR. SHOWS NO SIGNS OF ACUTE RESPIRATORY DISTRESS, NO ACUTE PAIN. IV ON L FA 24G SL. ITS CLEAN, DRY, AND INTACT. SHOWS NO SIGNS OF INFILTRATION, NO REDNESS. SAFETY PRECAUTIONS IN PLACE. BED IN LOWEST POSITION, LOCKED, AND CALL LIGHT KEPT WITHIN REACH. WILL CONTINUE TO MONITOR.
[2020-04-24 06:27] LABS: BASOPHILS % (AUTO) 0.2 % (0.0-2.0); EOSINOPHILS % (AUTO) 0.2 % (0.0-6.0); HEMATOCRIT 43 % (33-45); HEMOGLOBIN 14.5 g/dL (11.5-14.8); LYMPHOCYTES # (AUTO) 1.5 /CMM (0.8-4.8); LYMPHOCYTES % (AUTO) 22.3 % (20.0-44.0); MEAN CORPUSCULAR HGB CONC 34 g/dl (31.0-36.0); MEAN CORPUSCULAR VOLUME 93 fL (82-100); MONOCYTES # (AUTO) 0.8 /CMM (0.1-1.30); MONOCYTES % (AUTO) 11.5 % (2.0-12.0); NEUTROPHILS # (AUTO) 4.5 /CMM (1.8-8.9); NEUTROPHILS % (AUTO) 65.8 % (43.0-81.0); PLATELET COUNT (AUTO) 252 /CMM (150-450); RED BLOOD CELL COUNT(AUTO) 4.67 MIL/uL (4.0-5.2); WHITE BLOOD COUNT (AUTO) 6.8 K/uL (4.3-11.0)
[2020-04-24] MEDS: BLOOD SUGAR DIAGNOSTIC 1 EACH STRIP VI SCH ×3 (06:36→17:38)
--- NOTE | 2020-04-24 06:36 | NUR ---
MS RN NOTES PATIENT IN BED, ASLEEP, ALERT AND ORIENTED X 2-3. BREATHING EVEN AND UNLABORED ON ROOM AIR. SHOWS NO SIGNS OF ACUTE RESPIRATORY DISTRESS, NO ACUTE PAIN. IV ON L FA 24G SL. ITS CLEAN, DRY, AND INTACT. SHOWS NO SIGNS OF INFILTRATION, NO REDNESS. ALL DUE MEDICATIONS GIVEN. SAFETY PRECAUTIONS IN PLACE. BED IN LOWEST POSITION, LOCKED, AND CALL LIGHT KEPT WITHIN REACH. WILL ENDORSE TO ONCOMING NURSE
[2020-04-24 06:50] LABS: CALCIUM, SERUM 9.8 mg/dL (8.5-10.1); CARBON DIOXIDE 26 mmol/L (21-32); CHLORIDE 102 mmol/L (98-107); CREATININE 1.4 mg/dL (0.6-1.3); GLUCOSE 105 mg/dL (74-106); MAGNESIUM 2.2 mg/dL (1.8-2.4); PHOSPHORUS 4.1 mg/dL (2.5-4.9); POTASSIUM 3.5 mmol/L (3.5-5.1); SODIUM SERUM 138 mmol/L (136-145); UREA NITROGEN, BLOOD 23 mg/dL (7-18)
[2020-04-24] MEDS: LEVOTHYROXINE SODIUM 25 MCG TABLET PO SCH (07:53)
[2020-04-24] MEDS: PANTOPRAZOLE 40 MG TABLET.DR PO SCH (07:53)
[2020-04-24 08:00] VITALS: BP 136/70
--- NOTE | 2020-04-24 08:00 | NUR ---
MS/RN - Assessment Patient is alert and oriented x 2, denies chest pain, no c/o palpitation, stable on room air. Saline lock on the LFA is patent and intact. Labs reviewed, no critical results seen. Continue fall, aspiration, droplet and contact precautions for r/o Covid, test result is still pending. Discharge back to [facility] once Covid result is negative.
[2020-04-24] MEDS: AMLODIPINE BESYLATE 10 MG TABLET PO SCH (08:16)
[2020-04-24] MEDS: hydrALAZINE HCL 50 MG TABLET PO SCH ×3 (08:16→16:14)
[2020-04-24] MEDS: CLOPIDOGREL BISULFATE 75 MG TABLET PO SCH (08:16)
[2020-04-24] MEDS: ATORVASTATIN 10 MG TABLET PO SCH (08:16)
[2020-04-24] MEDS: ISOSORBIDE MONONITRATE (30MG) 30 MG TAB.SR.24H PO SCH (08:17)
[2020-04-24] MEDS ORDERED: CARVEDILOL 6.25 MG TABLET PO SCH (10:30)
[2020-04-24 14:00] VITALS: BP 109/65
--- NOTE | 2020-04-24 14:00 | NUR ---
MS/RN - Notes Patient was transferred to 205-2, report given to JERRY King for continuity of care. All belongings was sent with the patient. Endorsed accordingly.
[2020-04-24] MEDS ORDERED: HYDR-4077 PO (14:14)
[2020-04-24] MEDS ORDERED: CARV6.252 PO (14:14)
--- NOTE | 2020-04-24 14:15 | NUR ---
MS RN NOTES RECEIVED TRANSFER AND REPORT. PATIENT IN MEDICALLY STABLE CONDITION. WILL CONTINUE TO MONITOR.
[2020-04-24] MEDS: ENOXAPARIN SODIUM 30 MG/0.3 ML DISP.SYRIN SQ SCH (15:00)
[2020-04-24 16:00] VITALS: BP 104/70
[2020-04-24 16:14] VITALS: BP 104/70
--- NOTE | 2020-04-24 16:16 | NUR ---
MS RN NOTES 1700 BLOOD PRESSURE MEDICATION NOT ADMINISTERED. BLOOD PRESSURE IS BORDERLINE; 104/71 HR 86
--- NOTE | 2020-04-24 19:05 | NUR ---
MS RN NOTES RECEIVED PT IN BED AND AWAKE. PT A/O X1-2. RESPIRATIONS EVEN AND UNLABORED WITH NO S/S OF ACUTE DISTRESS OR SOB NOTED. NO COMPLAINTS OF PAIN AT THIS TIME. PT AWAITING TRANSPORT TO [facility]. SAFETY MEASURES IN PLACE WITH BED IN LOWEST LOCKED POSITION WITH SIDE RAILS UP X2. CALL LIGHT WITHIN REACH. WILL CONTINUE TO MONITOR. PT REFUSED PHOTOS AT THIS TIME.
--- NOTE | 2020-04-24 19:18 | NUR ---
MS RN NOTES PATIENT IN BED, RESTING, A/O X1-2. PATIENT ON ROOM AIR; BREATHING IS EVEN AND UNLABORED; NO SOB PRESENT AT THIS TIME. AWAITING TO BE PICKED UP BY THE AMBULANCE TO GO BACK TO [facility]IV[facility]. ALL DOCUMENTS READY AND BELONGING SHEET SIGNED BY TWO NURSES; PATIENT UNABLE TO SIGN (A/O X1) ALSO PATIENT REFUSED PICTURES. VITAL SIGNS WNL. WILL ENDORSE TO SQL ANALYST NURSE.
--- NOTE | 2020-04-24 19:21 | NUR ---
MS RN NOTES HAS BEEN TRYING TO CALL [facility]IV[facility] A FEW TIMES BUT NO ONE WAS PICKING UP. ENDORSED TO ZMT OPERATOR NURSE BHUPENDRA TO TRY AGAIN.
--- NOTE | 2020-04-24 20:30 | NUR ---
MS HAND DEVELOPER NOTES PT DISCHARGE TO [facility] VIA AMBULANCE WITH 2 FURNITURE LUMBER PRODUCTION WORKER IN STABLE CONDITION. PT A/O X1-2. RESPIRATIONS EVEN AND UNLABORED WITH NO S/S OF ACUTE DISTRESS OR SOB NOTED. NO COMPLAINTS OF PAIN AT THIS TIME. PT REFUSED DISCHARGE PHOTOS AT THIS TIME. WENT OVER BELONGINGS LIST AND PT DENIED ANY MISSING ITEMS, AND ITEMS GIVEN TO FURNITURE LUMBER PRODUCTION WORKER. REMOVED IV CATH FROM LFA WITH NO BLOOD LOSS. DISCHARGE INSTRUCTIONS GIVEN TO [facility] WELL FURNITURE LUMBER PRODUCTION WORKER AND BOTH VERBALIZED UNDERSTANDING. ALL DISCHARGE PAPERWORK GIVEN TO FURNITURE LUMBER PRODUCTION WORKER.
== END 2020-04-24 20:30 | DRG 302 ==
LOC: ER 14:05 → TELE 17:04 → MED 04-20 08:49 → MEDSG2 04-24 14:00
PROVIDERS: ADMIT Student in an Organized Health Care Education/Training Program; ATTEND Nurse Practitioner Acute Care
DX: I25.10 Atherosclerotic heart disease of native coronary artery without angina pectoris (principal); N17.0 Acute kidney failure with tubular necrosis; E86.0 Dehydration; F03.90 Unspecified dementia, unspecified severity, without behavioral disturbance, psychotic disturbance, mood disturbance, and anxiety; I10 Essential (primary) hypertension; F31.9 Bipolar disorder, unspecified; Z88.0 Allergy status to penicillin; F41.9 Anxiety disorder, unspecified; E03.9 Hypothyroidism, unspecified; E78.5 Hyperlipidemia, unspecified; Z86.73 Personal history of transient ischemic attack (TIA), and cerebral infarction without residual deficits; E11.65 Type 2 diabetes mellitus with hyperglycemia; F39 Unspecified mood [affective] disorder; T50.2X5A Adverse effect of carbonic-anhydrase inhibitors, benzothiadiazides and other diuretics, initial encounter; Y92.89 Other specified places as the place of occurrence of the external cause
CPT/HCPCS: 36415; 71045-TC; 80048-TC; 80061-TC; 82962-TC; 83735-TC; 84100-TC; 84443-TC; 84484-TC; 85025-TC; 87081-TC; 93307-TC; G0378; J1644; J1650; J1815; J3475; J3490; J7030; J7050; U0003-CS